=== PATIENT | female | born 1960 | race Caucasian/White ===

== ENCOUNTER 2024-01-20 08:51 | Emergency (ER) | payer OTHER, SELFPAY ==
[2024-01-20 08:52] VITALS: BP 178/92
[2024-01-20 09:09] VITALS: BP 153/81
--- NOTE | 2024-01-20 09:16 | ED.GENMED ---
History of Present Illness
General
Chief Complaint: Headache
Source: patient
Time Seen by Provider: 01/20/24 08:57
History of Present Illness
History of Present Illness:
64yoF with a history of hypertension and prior ICH in 2018 presenting with her daughter for evaluation of multiple complaints. Symptoms started 4 days ago when she woke up from sleep. She felt dizzy which is described as feeling like the room is
spinning. Dizziness is worse with head movement and improves with rest. She also reports a headache, feeling flushed, tingling in her tongue/mouth region, as well as left leg shaking. Patient is also experiencing a discomfort in her left lower chest
but she denies any pain. Her blood pressure was elevated at symptom onset with a BP around 190/100. She was seen by her PCP yesterday for her symptoms and was started on losartan. Her only other medications are atenolol and a baby aspirin. Of note,
patient was seen in the ED in [address] head showed 'Large bilateral intraparenchymal frontal lobe hemorrhages extending into the subarachnoid space.' She was transferred to [facility] at that time. She states a cause for the bleed was
never found and MRI did not show an underlying mass.
Past History
Past History
ED Past Medical History: HTN, Hypercholesterolemia and Other (Intracerebral hemorrhage. Cardiolipin; antiphospholipid syndrome, dural sinus trhombosis)
ED Past Surgical History: Other (partial thyroidectomy)
Social History
Tobacco: Non-smoker
Drug: None
Personal:
Living: with family
Employment: Other
Family History
Family History: Other
Phy Exam
General Physical Exam
General Presentation: well appearing and no apparent distress
General age: appears stated age
General Skin: warm and dry
General Habitus: normal
General Mental: alert
General Hydration: appears well hydrated
ENT Exam
ENT Exam: TM's normal
Eye Exam
Eye Exam: PERRL and EOMI
Cardiovascular Exam
Cardiovascular Exam: regular rate/rhythm, no edema, no murmur and normal peripheral pulses (2+ radial pulses bilaterally)
Pulmonary Exam
Pulmonary Exam: lungs clear, no respiratory distress and no crackles
Neurological Exam
Neurological Exam: alert, CN II-XII intact, no motor deficits and other (CN 2-12 intact. PERRL. EOMs intact. Negative drift x4. 5/5 strength in all extremities. Normal finger to nose and heel to grijalva bilaterally. )
[place] Coma Scale
Eye Opening: Spontaneous
Verbal Response: Oriented
Motor Response: Obeys Commands
GCS Total Score: 15
Skin Exam
Skin Exam: normal color and warm/dry
Psychiatric Exam
Psychiatric Exam: normal mood/affect
Course
Orders/Labs/Results
Orders:
Orders
01/20/24 08:59
EKG [Electrocardiogram (*1)] Urgent
Reason for Study: Vertigo / Dizzy
EKG- Treatment ONCE
01/20/24 09:19
CT Head W/o Iv Contrast Urgent
Comment:
Reason For Exam: VILLEGAS, dizziness, hx of ICH
Cardiac Monitoring- Treatment ONCE
Acetaminophen [Tylenol] 1,000 mg PO NOW STA
CR Chest - 2 Views Urgent
Comment:
Reason For Exam: CP
01/20/24 09:21
Complete Blood Count/With Diff Urgent
Comprehensive Metabolic Panel Urgent
Magnesium Urgent
Troponin I Urgent
Abnormal Lab Results
01/20/24
09:21
MPV 12.9 H fL
(7.4-10.4)
Calcium 10.6 H mg/dl
(8.4-10.2)
AST 39 H U/L
(14-36)
01/20/24 09:21
01/20/24 09:21
Vital Signs
Initial and Last Documented VS:
Initial Vital Signs
Temp Pulse Resp BP Pulse Ox
98.4 F 52 20 178/92 100
01/20/24 08:52 01/20/24 08:52 01/20/24 08:52 01/20/24 08:52 01/20/24 08:52
Last Documented Vital Signs
Temp Pulse Resp BP Pulse Ox
98.4 F 41 15 116/74 96
01/20/24 08:52 01/20/24 11:15 01/20/24 11:00 01/20/24 11:00 01/20/24 11:15
MDM/Problems Addressed
Differential Diagnosis Includes:
64yoF here with multiple complaints including dizziness, VILLEGAS, lip/tongue paresthesias, chest discomfort, and elevated BP. Hx of ICH in 2018. BP 178/92 in triage. Remainder of vitals stable. She is awake, alert, with a GCS of 15. No focal deficits
appreciated on exam. Differential diagnosis includes but is not limited to: hypertensive emergency, ICH, complex migraine, electrolyte abnormality, arrhythmia, ACS
Initial ED plan: Check cardiac labs, magnesium, EKG, and CT head. Tylenol for headache.
*EKG
Interpreted by ED Provider?: Yes
EKG Intrepretation Date: 01/20/24
Heart Rate: 50
Rate: bradycardiac
Rhythm: sinus
[place]: normal axis
Interval: normal interval
QRS Pattern: normal QRS
Ischemia: no ischemia
*Critical Care Note
Total Time (30-74mins, 75-104mins- exclusive of procedures): Not Applicable
Update Note
Update Note:
Labs overall unremarkable. Calcium 10.6, remainder of electrolytes are normal. Glucose and renal function normal. EKG shows sinus bradycardia without ischemic changes and troponin is WNL. CT head is stable without any acute findings. CXR is clear.
BP improved to 116/74 without intervention. Heart rate in the 40-50s throughout ED stay. On reassessment, patient is feeling significantly improved and most of her symptoms have resolved. She is stable for discharge. Patient advised to stop taking
atenolol due to bradycardia. Advised close f/u with PCP and ED return precautions discussed. She expressed understanding and is agreeable to plan. Patient discharged in stable condition.
ED Attending Note
-
Portions of this chart may have been created with voice recognition software.� Occasional wrong word or��sound alike� substitutions may have occurred due to the inherent limitations of voice recognition software.
Discharge Plan
Departure
Patient Disposition: Home (Routine Discharge)
Date of Disposition: 01/20/24
Time of Disposition: 11:26
Patient with high blood pressure during this ER visit?: Yes
Discharge Problem:
Acute headache, Dizziness, Sinus bradycardia
Instructions: Dizziness, Adult ED
Prescriptions:
No Action
rivaroxaban [Xarelto] 10 MG tablet
10 mg PO DAILY@1400
acetaminophen 325 MG tablet
650 mg PO Q4HPRN PRN (Reason: headache)
atenolol 25 MG tablet
25 mg PO DAILY
losartan 25 MG tablet
25 mg PO HS
atorvastatin 40 MG tablet
40 mg PO QPM 30 Days Qty: 30 0RF
cholecalciferol (vitamin D3) 2,000 UNITS tablet
2,000 units PO DAILY 100 Days Qty: 100 0RF
levofloxacin 500 mg tablet
500 mg PO DAILY Qty: 5 0RF
Referrals:
UNKNOWN - PT DOES,NOT KNOW [Family Provider] -
Activity Restrictions/Additional Instructions:
Stop taking atenolol. Continue losartan.
Please call your family doctor today for follow-up. Return to the ER with any new or worsening symptoms.
Interventions
Interventions:
*Risk Screen - Suicide Last Done: 01/20/24 09:16
*General Assessment Last Done: 01/20/24 09:16
*Neglect/Abuse Screening Last Done: 01/20/24 09:16
ED- Fall Risk Assessment Last Done: 01/20/24 11:36
*ED COVID-19 Vaccine History Last Done: 01/20/24 09:16
*Nursing Disposition Last Done: 01/20/24 11:36
ED- Neurological Assessment Last Done: 01/20/24 09:12
Discharge Date and Time
Discharge Date/Time: 01/20/24 11:37
Print Language: [id number]
[2024-01-20 09:44] LABS: % Basophils 0.6 % (0-2); % Immature Granulocytes 0.3 % (0-0.5); % Lymphocytes 38.1 % (20.5-51.1); % Monocytes 6.4 % (1.7-9.3); % Neutrophils 52.6 % (42.2-75.2); Absolute Eosinophils 0.1 10^3/uL (0-0.7); Absolute Lymphocytes 2.7 10^3/uL (1.2-3.4); Absolute Monocytes 0.5 10^3/uL (0.1-0.6); Absolute Neutrophils 3.7 10^3/uL (1.4-6.5); Hematocrit 41.8 % (37.0-47.0); Hemoglobin 14.5 g/dL (12.0-16.0); Mean Corp Hgb Conc. 34.7 g/dL (33.0-37.0); Mean Corpuscular Hgb 28.5 pg (27.0-31.0); Mean Corpuscular Volume 82.1 fL (81.0-99.0); Mean Platelet Volume 12.9 fL (7.4-10.4); Nucleated Red Blood Cells % 0 %; Platelet Count 250 10^3/uL (130-400); Red Blood Cell Count 5.09 10^6/uL (4.20-5.40); Red Cell Dist. Width 13.3 % (11.5-14.5)
[2024-01-20 10:06] VITALS: BP 153/84
[2024-01-20 10:06] LABS: ALT (SGPT) 26 U/L (0-35); AST (SGOT) 39 U/L (14-36); Albumin 4.5 g/dl (3.5-5.0); Alkaline Phosphatase 75 U/L (38-126); Blood Urea Nitrogen 13 mg/dl (7-17); Calcium 10.6 mg/dl (8.4-10.2); Carbon Dioxide 30 mmol/L (22-30); Chloride 102 mmol/L (98-107); Glucose 96 mg/dl (70-99); Magnesium 2.2 mg/dl (1.6-2.3); Potassium 4.2 mmol/L (3.5-5.1); Sodium 136 mmol/L (135-145); Total Bilirubin 0.9 mg/dl (0.2-1.3); Total Protein 6.8 g/dl (6.3-8.2); eGFR > 60.00
[2024-01-20 10:22] LABS: Troponin I < 0.012 ng/ml
[2024-01-20 11:00] VITALS: BP 116/74
== END 2024-01-20 11:37 | disposition home or self-care (01) ==
LOC: EMR 08:51
PROVIDERS: Physician Assistant; EMERGENCY PHYSICIAN Emergency Medicine
DX: R42 Dizziness and giddiness (principal); R20.2 Paresthesia of skin; R00.1 Bradycardia, unspecified; R51.9 Headache, unspecified; R23.2 Flushing; R25.1 Tremor, unspecified; R07.89 Other chest pain; G93.89 Other specified disorders of brain; I10 Essential (primary) hypertension; E78.00 Pure hypercholesterolemia, unspecified; D68.61 Antiphospholipid syndrome; Z79.82 Long term (current) use of aspirin
CPT/HCPCS: 99284; 70450; 71046; 80053; 83735; 84484; 85025; 93005